=== PATIENT | female | born 1945 | race Caucasian/White ===

== ENCOUNTER 2017-05-28 11:53 | Emergency (ER) | payer MEDICARE, OTHER ==
[~2017-05-28 11:53] MED LIST: LISI-587 PO; OMEP20TA39 PO
[2017-05-28 12:08] VITALS: BP 140/66; PULSE 75; RESP 14; TEMP 98.7; O2SAT 94
--- NOTE | 2017-05-28 13:13 | RADRPT ---
EXAM DATE/TIME: 05/28/2017 12:34 [place] COMPARISON: CHEST PA & LAT, January 27, 2011, 10:54. INDICATIONS : Midsternal chest pressure, dizziness, cough x3 days. MEDICAL HISTORY : None. SURGICAL HISTORY : None. ENCOUNTER: Initial ACUITY: 3 days PAIN SCORE: 7/10 LOCATION: Bilateral chest FINDINGS: A single view of the chest demonstrates the lungs to be symmetrically aerated without evidence of mas s, infiltrate or effusion. The cardiomediastinal contours are unremarkable. Osseous structures are intact. CONCLUSION: Normal examination for a patient of this age. No significant change has occurred. Raj Gonzales MD on May 28, 2017 at 13:12 Board Certified Radiologist. This report was verified electronically.
[2017-05-28 14:05] VITALS: BP 114/56; PULSE 72; RESP 18; O2SAT 95
[2017-05-28] MEDS ORDERED: CLAR10CA3 PO (14:11)
[2017-05-28] MEDS ORDERED: LISI20TA3 PO (14:11)
[2017-05-28] MEDS ORDERED: OMEP40CA2 PO (14:11)
--- NOTE | 2017-05-28 14:45 | PD ---
HPI Chief Complaint: Fever Time Seen by Provider: 13:57 Travel History International Travel<30 days: No Contact w/Intl Traveler<30days: No Traveled to known affect area: No History of Present Illness HPI 72-year-old female that presents to the ED for evaluation of cough and congestion with fever. Patient has had this for about 5 days now. Per patient she has chest pain when she coughs. She states she's been taking OTC meds with minimal relief. She denies any chest pain at this time. Her shortness of breath. No history of smoking. No history of asthma or COPD. No shortness of breath. Per patient she's been feeling somewhat tired. He denies any nausea or vomiting. No abdominal pain. No bowel movement or urinary symptoms. Has no allergies to medication. She does have a history of chronic allergies. Pain per patient is 4 out of 10 when she has the cough. Cough is worse at night. PFSH Past Medical History Arthritis: Yes (feet) High Cholesterol: Yes Diminished Hearing: No Hypertension: Yes Triglycerides - High: Yes Ulcer: Yes Tetanus Vaccination: Never Vaccinated Influenza Vaccination: No ?: Not Tubal Ligation: Yes Social History Alcohol Use: No Tobacco Use: No Substance Use: Yes (marijuanna occasionally) Allergies-Medications (Allergen,Severity, Reaction): Coded Allergies: Fish Containing Products (Unverified Allergy, Intermediate, Anaphylaxis, ) fish Reported Meds & Prescriptions Reported Meds & Active Scripts Active Reported Omeprazole 40 Mg Cap 40 Mg PO DAILY Claritin (Loratadine) 10 Mg Cap 10 Mg PO DAILY Lisinopril-Hctz 20-25 Mg Tab 1 Tab PO DAILY Review of Systems Except as stated in HPI: all other systems reviewed are Neg Physical Exam Narrative GENERAL: Well-nourished, well-developed patient in no apparent distress. SKIN: Warm and dry. HEAD: Atraumatic. Normocephalic. EYES: Pupils equal and round reactive to light and accommodation. No scleral icterus. No injection or drainage. ENT: No nasal bleeding or discharge. Mucous membranes pink and moist. TMs are clear with no sign of infection or perforation. No mastoid tenderness. Ear canals are intact bilaterally. No lymphadenopathy. Nostril mucosa is red and moist with clear mucus noted. No sinus tenderness to palpation noted. Tonsils are not enlarged or swollen. No ulvua Deviation. Tongue is midline. NECK: Trachea midline. No JVD. No meningeal signs noted CARDIOVASCULAR: Regular rate and rhythm. RESPIRATORY: No accessory muscle use. Clear to auscultation. Breath sounds equal bilaterally. GASTROINTESTINAL: Abdomen soft, non-tender, nondistended. Hepatic and splenic margins not palpable. MUSCULOSKELETAL: Extremities without clubbing, cyanosis, or edema. No obvious deformities. NEUROLOGICAL: Awake and alert. No obvious cranial nerve deficits. Motor grossly within normal limits. Five out of 5 muscle strength in the arms and legs. Normal speech. PSYCHIATRIC: Appropriate mood and affect; insight and judgment normal. Data Data Last Documented VS Vital Signs Date Time Temp Pulse Resp B/P (MAP) Pulse Ox O2 Delivery O2 Flow Rate FiO2 05/28/17 14:05 72 18 114/56 (75) 95 Room Air 05/28/17 12:08 98.7 Orders Orders Chest, Single Ap (05/28/17 ) Complete Blood Count With Diff (05/28/17 14:10) Influenzae A/B Antigen (05/28/17 14:10) [facility] Medical Decision Making Medical Screen Exam Complete: Yes Emergency Medical Condition: Yes Medical Record Reviewed: Yes Interpretation(s) CXR negative Differential Diagnosis Pneumonia versus bronchitis versus sinusitis versus URI Narrative Course 72-year-old female that presents to the ED for evaluation of cold-like symptoms. Patient was properly examined and was found to have signs and symptoms concerning for viral illness. Labs and imaging were ordered. Labs and imaging were essentially unremarkable. Patient will be discharged home with prescription for azithromycin and Tessalon Perles. She was told to take Mucinex OTC to help with the congestion and symptoms. Tylenol or Motrin as needed. See ED for any worsening symptoms. Close follow with PCP. All questions were answered to the best of my ability. Diagnosis Primary Impression: Bronchitis Patient Instructions: General Instructions Additional Instructions: Motrin and Tylenol for pain and fever. You can use [id number] antihistamine as well as well as Mucinex (plain mucinex) as needed for runny nose and congestion. Cough drops for cough as needed. Drink plenty of fluids. Follow-up with PCP. See ED for worsening symptoms. Med/Other Pt SpecificInfo: Prescription(s) given Disposition: 01 DISCHARGE HOME Condition: Stable Sadi Wilkins May 28, 2017 14:45
[2017-05-28] MEDS ORDERED: BENZ100 PO (14:46)
[2017-05-28] MEDS ORDERED: AZIT250T3 PO (14:46)
[2017-05-28 15:15] LABS: BASOPHIL % 0.2 % (0.0-2.0); EOSINOPHIL # 0.2 TH/MM3 (0-0.4); EOSINOPHIL % 2.4 % (0.0-4.0); HEMATOCRIT 39.9 % (35.0-46.0); HEMO FLAGS DIFF FINAL; LYMPH % 25.6 % (9.0-44.0); LYMPHOCYTE # 1.7 TH/MM3 (1.0-4.8); MEAN CELL VOLUME 94.7 FL (80.0-100.0); MEAN CORPUSCULAR HEMOGLOBIN 31.7 PG (27.0-34.0); MEAN CORPUSCULAR HGB CONC 33.5 % (32.0-36.0); MONO % 12.3 % (0.0-8.0); NEUT % 59.5 % (16.0-70.0); PLATELET COUNT 241 TH/MM3 (150-450); RED BLOOD COUNT 4.22 MIL/MM3 (4.00-5.30); RED CELL DISTRIBUTION WIDTH 14.1 % (11.6-17.2); WHITE BLOOD COUNT 6.7 TH/MM3 (4.0-11.0)
== END 2017-05-28 15:55 | disposition home or self-care (01) ==
LOC: NEPC 11:53
DX: J40 Bronchitis, not specified as acute or chronic (principal); I10 Essential (primary) hypertension
CPT/HCPCS: 71010; 85025; 87804; 99284

== ENCOUNTER 2017-10-22 09:05 | Emergency (ER) | payer MEDICARE, OTHER ==
[~2017-10-22] VITALS: Ht 160 cm; Wt 97.0 kg
[~2017-10-22 09:05] MED LIST changes: +AZIT250T3 PO; +BENZ100 PO; +CLAR10CA3 PO; -LISI-587 PO; +LISI20TA3 PO; -OMEP20TA39 PO; +OMEP40CA2 PO
[2017-10-22 09:20] VITALS: BP 136/61; PULSE 71; RESP 16; TEMP 98.4; O2SAT 95
[2017-10-22 09:38] VITALS: BP 88/51; PULSE 70; O2SAT 94
[2017-10-22 09:40] VITALS: BP 129/58
[2017-10-22] MEDS ORDERED: FAMOTIDINE 20 MG/2 ML VIAL IV PUSH STA (09:40)
[2017-10-22] MEDS ORDERED: SODIUM CHLOR 0.9% 1000 ML INJ 1,000 ML IV ONE (09:40)
[2017-10-22] MEDS ORDERED: SODIUM CHLORIDE 0.9% FLUSH 10 ML FLUSH IVF PRN (09:45)
[2017-10-22] MEDS ORDERED: DICYCLOMINE HCL 20 MG TAB PO ONE (09:45)
[2017-10-22] MEDS ORDERED: ONDANSETRON HCL 4 MG/2 ML VIAL IV PUSH ONE (09:45)
--- NOTE | 2017-10-22 09:49 | PD ---
HPI Chief Complaint: Abdominal Pain Time Seen by Provider: 09:28 Travel History International Travel<30 days: No Contact w/Intl Traveler<30days: No Traveled to known affect area: No History of Present Illness HPI The patient is a 72-year-old female who presents emergency department for 4 days of nausea, vomiting, diarrhea. The patient's symptoms started 4 days ago with nausea and vomiting. She does complain of mild nausea but no vomiting since yesterday. She now complains of diarrhea which she describes as loose, watery, brown, without any visible blood. She does note intermittent abdominal cramping worse in the left upper quadrant. She denies any history of C. difficile or recent international travel. The patient does state that her grown children had similar symptoms of nausea, vomiting, diarrhea after her symptoms started, however, there symptoms have resolved. She denies any known history of colitis or IBS. She denies any fever, chills, or sweats. Symptoms are moderate. PFSH Past Medical History Arthritis: Yes (feet) High Cholesterol: Yes Diminished Hearing: No Hypertension: Yes Triglycerides - High: Yes Ulcer: Yes Tubal Ligation: Yes Past Surgical History Section: Yes Social History Alcohol Use: No Tobacco Use: No Substance Use: Yes (marijuanna occasionally) Allergies-Medications (Allergen,Severity, Reaction): Coded Allergies: Fish Containing Products (Unverified Allergy, Intermediate, Anaphylaxis, ) fish Reported Meds & Prescriptions Reported Meds & Active Scripts Active Reported Omeprazole 40 Mg Cap 40 Mg PO DAILY Claritin (Loratadine) 10 Mg Cap 10 Mg PO DAILY Lisinopril-Hctz 20-25 Mg Tab 1 Tab PO DAILY Review of Systems Except as stated in HPI: all other systems reviewed are Neg General / Constitutional: No: Fever HENT: Positive: Lightheadedness Cardiovascular: No: Chest Pain or Discomfort Respiratory: No: Shortness of Breath Gastrointestinal: Positive: Nausea, Vomiting, Diarrhea, Abdominal Pain Genitourinary: No: Dysuria, Decreased Urinary Output Neurologic: Positive: Dizziness Physical Exam Narrative GENERAL: Awake, alert, 72-year-old female who appears her stated age and is in no acute respiratory distress. SKIN: Focused skin assessment warm/dry. HEAD: Atraumatic. Normocephalic. EYES: Pupils equal and round. No scleral icterus. No injection or drainage. ENT: No nasal bleeding or discharge. Slightly dry mucous membranes. NECK: Trachea midline. No JVD. CARDIOVASCULAR: Regular rate and rhythm. No murmur appreciated. RESPIRATORY: No accessory muscle use. Clear to auscultation. Breath sounds equal bilaterally. GASTROINTESTINAL: Abdomen soft, non-tender, nondistended. No rebound tenderness. No guarding or rigidity. MUSCULOSKELETAL: No obvious deformities. No clubbing. No cyanosis. No edema. NEUROLOGICAL: Awake and alert. No obvious cranial nerve deficits. Motor grossly within normal limits. Normal speech. PSYCHIATRIC: Appropriate mood and affect; insight and judgment normal. Data Data Last Documented VS Vital Signs Date Time Temp Pulse Resp B/P (MAP) Pulse Ox O2 Delivery O2 Flow Rate FiO2 10/22/17 09:40 129/58 (81) 10/22/17 09:38 70 94 Room Air 10/22/17 09:20 98.4 16 Orders Orders Complete Blood Count With Diff (10/22/17 09:40) Comprehensive Metabolic Panel (10/22/17 09:40) Urinalysis - C+S If Indicated (10/22/17 09:40) Lipase (10/22/17 09:40) Iv Access Insert/Monitor (10/22/17 09:40) Ecg Monitoring (10/22/17 09:40) Oximetry (10/22/17 09:40) Ondansetron Inj (Zofran Inj) (10/22/17 09:45) Sodium Chlor 0.9% 1000 Ml Inj (Ns 1000 M (10/22/17 09:40) Sodium Chloride 0.9% Flush (Ns Flush) (10/22/17 09:45) Lactic Acid (10/22/17 09:40) Famotidine Inj (Pepcid Inj) (10/22/17 09:40) Dicyclomine (Bentyl) (10/22/17 09:45) Potassium Chloride (Kcl) (10/22/17 11:30) Ed Discharge Order (10/22/17 12:36) Labs Laboratory Tests Test 10/22/17 10:00 10/22/17 11:35 White Blood Count 6.1 TH/MM3 Red Blood Count 4.27 MIL/MM3 Hemoglobin 13.4 GM/DL Hematocrit 39.0 % Mean Corpuscular Volume 91.5 FL Mean Corpuscular Hemoglobin 31.4 PG Mean Corpuscular Hemoglobin Concent 34.3 % Red Cell Distribution Width 13.5 % Platelet Count 242 TH/MM3 Mean Platelet Volume 8.4 FL Neutrophils (%) (Auto) 67.4 % Lymphocytes (%) (Auto) 20.2 % Monocytes (%) (Auto) 10.7 % Eosinophils (%) (Auto) 1.4 % Basophils (%) (Auto) 0.3 % Neutrophils # (Auto) 4.1 TH/MM3 Lymphocytes # (Auto) 1.2 TH/MM3 Monocytes # (Auto) 0.7 TH/MM3 Eosinophils # (Auto) 0.1 TH/MM3 Basophils # (Auto) 0.0 TH/MM3 CBC Comment DIFF FINAL Differential Comment Blood Urea Nitrogen 19 MG/DL Creatinine 0.76 MG/DL Random Glucose 113 MG/DL Total Protein 7.0 GM/DL Albumin 3.3 GM/DL Calcium Level 8.3 MG/DL Alkaline Phosphatase 60 U/L Aspartate Amino Transf (AST/SGOT) 25 U/L Alanine Aminotransferase (ALT/SGPT) 29 U/L Total Bilirubin 0.7 MG/DL Sodium Level 137 MEQ/L Potassium Level 3.2 MEQ/L Chloride Level 102 MEQ/L Carbon Dioxide Level 28.2 MEQ/L Anion Gap 7 MEQ/L Estimat Glomerular Filtration Rate 75 ML/MIN Lactic Acid Level 0.9 mmol/L Lipase 163 U/L Urine Color YELLOW Urine Turbidity CLEAR Urine pH 5.5 Urine Specific [place] 1.009 Urine Protein NEG mg/dL Urine Glucose (UA) NEG mg/dL Urine Ketones 10 mg/dL Urine Occult Blood NEG Urine Nitrite NEG Urine Bilirubin NEG Urine Urobilinogen LESS THAN 2.0 MG/DL Urine Leukocyte Esterase NEG Urine RBC LESS THAN 1 /hpf Urine WBC LESS THAN 1 /hpf Urine Squamous Epithelial Cells 2 /hpf Urine Hyaline Casts 1 /lpf Urine Mucus FEW /lpf Microscopic Urinalysis Comment CULT NOT INDICATED MDM Medical Decision Making Medical Screen Exam Complete: Yes Emergency Medical Condition: Yes Medical Record Reviewed: Yes Interpretation(s) Laboratory Tests Test 10/22/17 10:00 10/22/17 11:35 White Blood Count 6.1 TH/MM3 Red Blood Count 4.27 MIL/MM3 Hemoglobin 13.4 GM/DL Hematocrit 39.0 % Mean Corpuscular Volume 91.5 FL Mean Corpuscular Hemoglobin 31.4 PG Mean Corpuscular Hemoglobin Concent 34.3 % Red Cell Distribution Width 13.5 % Platelet Count 242 TH/MM3 Mean Platelet Volume 8.4 FL Neutrophils (%) (Auto) 67.4 % Lymphocytes (%) (Auto) 20.2 % Monocytes (%) (Auto) 10.7 % Eosinophils (%) (Auto) 1.4 % Basophils (%) (Auto) 0.3 % Neutrophils # (Auto) 4.1 TH/MM3 Lymphocytes # (Auto) 1.2 TH/MM3 Monocytes # (Auto) 0.7 TH/MM3 Eosinophils # (Auto) 0.1 TH/MM3 Basophils # (Auto) 0.0 TH/MM3 CBC Comment DIFF FINAL Differential Comment Blood Urea Nitrogen 19 MG/DL Creatinine 0.76 MG/DL Random Glucose 113 MG/DL Total Protein 7.0 GM/DL Albumin 3.3 GM/DL Calcium Level 8.3 MG/DL Alkaline Phosphatase 60 U/L Aspartate Amino Transf (AST/SGOT) 25 U/L Alanine Aminotransferase (ALT/SGPT) 29 U/L Total Bilirubin 0.7 MG/DL Sodium Level 137 MEQ/L Potassium Level 3.2 MEQ/L Chloride Level 102 MEQ/L Carbon Dioxide Level 28.2 MEQ/L Anion Gap 7 MEQ/L Estimat Glomerular Filtration Rate 75 ML/MIN Lactic Acid Level 0.9 mmol/L Lipase 163 U/L Urine Color YELLOW Urine Turbidity CLEAR Urine pH 5.5 Urine Specific [place] 1.009 Urine Protein NEG mg/dL Urine Glucose (UA) NEG mg/dL Urine Ketones 10 mg/dL Urine Occult Blood NEG Urine Nitrite NEG Urine Bilirubin NEG Urine Urobilinogen LESS THAN 2.0 MG/DL Urine Leukocyte Esterase NEG Urine RBC LESS THAN 1 /hpf Urine WBC LESS THAN 1 /hpf Urine Squamous Epithelial Cells 2 /hpf Urine Hyaline Casts 1 /lpf Urine Mucus FEW /lpf Microscopic Urinalysis Comment CULT NOT INDICATED Differential Diagnosis Differential diagnosis includes viral gastroenteritis, gastritis, food poisoning , enteritis, colitis, electrolyte abnormality, C. difficile, diverticulitis, dehydration. Narrative Course IV was established, labs are drawn and sent, and the patient was placed on cardiac telemetry monitoring and continuous pulse oximetry monitoring. The patient was administered Zofran, Bentyl, and IV fluids. The patient's lipase, LFTs, white count, and lactic acid unremarkable. UA reveals 10 ketones, otherwise unremarkable. Abdominal exam was performed, was benign, she was reexamined at 12:30 PM, her abdominal exam is benign. Most likely this is a viral gastroenteritis. She will be discharged home on Zofran, is advised to take [id number] Imodium as needed. She will be provided a copy of her labs at discharge. Return if symptoms worsen or progress. Diagnosis Primary Impression: Nausea vomiting and diarrhea Patient Instructions: General Instructions Additional Instructions: Zofran as directed. [id number] Imodium as needed. Plenty fluids to stay hydrated. Follow-up with her primary physician. Return if symptoms worsen or progress. Med/Other Pt SpecificInfo: Prescription(s) given Scripts Ondansetron Odt (Zofran Odt) 4 Mg Tab 4 MG SL Q6HR Y for Nausea/Vomiting, #10 TAB 0 Refills Prov: Kuldeep Adams MD 10/22/17 Disposition: DISCHARGE HOME Condition: Stable Kuldeep Adams MD Oct 22, 2017 09:49
[2017-10-22 10:14] LABS: AUTOMATED NEUTROPHIL # 4.1 TH/MM3 (1.8-7.7); BASOPHIL % 0.3 % (0.0-2.0); EOSINOPHIL # 0.1 TH/MM3 (0-0.4); EOSINOPHIL % 1.4 % (0.0-4.0); HEMOGLOBIN 13.4 GM/DL (11.6-15.3); LYMPH % 20.2 % (9.0-44.0); LYMPHOCYTE # 1.2 TH/MM3 (1.0-4.8); MEAN CELL VOLUME 91.5 FL (80.0-100.0); MEAN CORPUSCULAR HEMOGLOBIN 31.4 PG (27.0-34.0); MEAN CORPUSCULAR HGB CONC 34.3 % (32.0-36.0); MEAN PLATELET VOLUME 8.4 FL (7.0-11.0); MONO % 10.7 % (0.0-8.0); MONOCYTE # 0.7 TH/MM3 (0-0.9); NEUT % 67.4 % (16.0-70.0); PLATELET COUNT 242 TH/MM3 (150-450); RED BLOOD COUNT 4.27 MIL/MM3 (4.00-5.30); RED CELL DISTRIBUTION WIDTH 13.5 % (11.6-17.2); WHITE BLOOD COUNT 6.1 TH/MM3 (4.0-11.0)
[2017-10-22 10:29] LABS: ALBUMIN 3.3 GM/DL (3.4-5.0); ALT (GPT) 29 U/L (10-53); AST (GOT) 25 U/L (15-37); BICARBONATE 28.2 MEQ/L (21.0-32.0); BLOOD UREA NITROGEN 19 MG/DL (7-18); CALCIUM 8.3 MG/DL (8.5-10.1); CHLORIDE 102 MEQ/L (98-107); CREATININE 0.76 MG/DL (0.50-1.00); GLOMERULAR FILTRATION RATE 75 ML/MIN (>89); GLUCOSE,RANDOM 113 MG/DL (74-106); SODIUM (NA) 137 MEQ/L (136-145)
[2017-10-22 10:31] LABS: ALKALINE PHOSPHATASE 60 U/L (45-117); TOTAL BILIRUBIN ADULT 0.7 MG/DL (0.2-1.0)
[2017-10-22] MEDS ORDERED: POTASSIUM CHLORIDE 20 MEQ CONTROLLED RELEASE TAB PO ONE (11:30)
[2017-10-22 12:15] LABS: BILIRUBIN, URINE NEG (NEG); BLOOD, URINE NEG (NEG); GLUCOSE,URINE NEG (NEG); HYALINE CAST, URINE 1 /lpf (RARE); KETONE, URINE 10 mg/dL (NEG); MUCUS URINE FEW /lpf (OCC); NITRITE,URINE NEG (NEG); PH, URINE 5.5 (5.0-8.5); SQUAMOUS EPITHELIAL CELL URINE 2 /hpf (0-5); URINE COLOR YELLOW (YELLW/STRAW); URINE LEUKOCYTE ESTERASE NEG (NEG)
[2017-10-22] MEDS ORDERED: ZOFR4TAB3 SL (12:41)
== END 2017-10-22 13:05 | disposition home or self-care (01) ==
LOC: NEPE 09:05
DX: R11.2 Nausea with vomiting, unspecified (principal); R19.7 Diarrhea, unspecified
CPT/HCPCS: 80053; 81001; 83605; 83690; 85025; 96361; 96374; 96375; 99284; J2405; J7030